=== PATIENT | female | born 1965 | race Caucasian/White ===

== ENCOUNTER 2016-06-29 10:43 | Emergency (ER) | payer OTHER ==
[~2016-06-29] VITALS: Ht 162.6 cm; Wt 70.3 kg
[2016-06-29] MEDS ORDERED: PARO40TA2 PO (10:54)
[2016-06-29] MEDS ORDERED: VITA50003 PO (10:54)
[2016-06-29] MEDS ORDERED: BUSP10TA PO (10:54)
[2016-06-29] MEDS ORDERED: CYCL10TA PO (10:54)
[2016-06-29] MEDS ORDERED: ZALE10CA PO (10:54)
[2016-06-29] MEDS ORDERED: GABA-279 PO (10:54)
[2016-06-29] MEDS ORDERED: CLON0.5T PO (10:54)
[2016-06-29] MEDS ORDERED: NORCO, ANEXSIA 5/325MG TABLET (HYDROcodone/ACETAMINOPHEN) PO ONE (12:00)
--- NOTE | 2016-06-29 12:31 | REP ---
Left wrist four views left wrist : There is no fracture or dislocation. Mineralization and joint spaces are normal. There are no calcifications or foreign bodies. Impression: Negative left wrist . Signed by Magdi Morillo MD 06/29/2016 12:22 P
--- NOTE | 2016-06-29 12:32 | REP ---
PA and lateral chest: Comparisons 05/08/2013. There is no pneumothorax, hemothorax or pulmonary contusion. No fractures are identified. The lung sheppard are clear. The cardiac size is normal The aj, mediastinum, and bony thorax are unremarkable. Impression: Negative PA and lateral chest. Signed by Magdi Morillo MD 06/29/2016 12:23 P
[2016-06-29 12:49] VITALS: BP 131/86
[2016-06-29] MEDS ORDERED: NAPR500T PO (12:52)
== END 2016-06-29 12:59 | disposition home or self-care (01) ==
LOC: M ED 12:15
DX: S30.0XXA Contusion of lower back and pelvis, initial encounter (principal); S60.212A Contusion of left wrist, initial encounter; W01.0XXA Fall on same level from slipping, tripping and stumbling without subsequent striking against object, initial encounter; Y92.019 Unspecified place in single-family (private) house as the place of occurrence of the external cause; Y93.01 Activity, walking, marching and hiking; Y99.8 Other external cause status; F17.210 Nicotine dependence, cigarettes, uncomplicated; Z79.899 Other long term (current) drug therapy; M54.9 Dorsalgia, unspecified; M19.90 Unspecified osteoarthritis, unspecified site; F31.9 Bipolar disorder, unspecified

== ENCOUNTER 2016-06-30 13:54 | Emergency (ER) | payer OTHER ==
[~2016-06-30] VITALS: Ht 165.1 cm; Wt 68.0 kg
[~2016-06-30 13:54] MED LIST: BUSP10TA PO; CLON0.5T PO; CYCL10TA PO; GABA-279 PO; NAPR500T PO; PARO40TA2 PO; VITA50003 PO; ZALE10CA PO
--- NOTE | 2016-06-30 17:24 | REP ---
CT THORACIC SPINE WITHOUT CONTRAST: 06/30/2016. Comparison chest x-ray 06/29/2016. Clinical history: Trauma. Patient fell yesterday with negative thoracic spine on chest x-ray. Axial images from C7-L1 were reviewed with the soft tissue and bone window settings and both coronal and sagittal reconstructions are provided. The disc spaces from C7-T1 through T12-L1 were preserved. There are small marginal osteophytes at multiple levels in the mid and lower thoracic spine. No compression deformity or destructive lesion. No Schmorl's nodes or endplate deformities. The axial images show no definite central canal or foraminal stenosis. Posterior rib articulations from the T1 through T12 ribs were symmetric and without abnormality. The pedicles, spinous processes, lamina, facets and transverse processes are all normal. No paraspinal hematoma or mass. Visualized chest shows no pleural effusion or pleural based mass. No paraspinal hematoma. The aorta from the arch through the upper abdominal region showed a few scattered calcifications without aneurysm. Impression: 1. No CT evidence of compression deformity, malalignment, disc space narrowing or destructive lesions within the thoracic spine. 2. Posterior elements intact and the posterior ribs articulate normally. Negative exam. Signed by Cj Shaver MD 07/01/2016 03:05 P
[2016-06-30 17:47] VITALS: BP 121/81
== END 2016-06-30 17:48 | disposition home or self-care (01) ==
LOC: M ED 16:40
DX: M54.89 Other dorsalgia (principal); W01.0XXD Fall on same level from slipping, tripping and stumbling without subsequent striking against object, subsequent encounter; Y92.9 Unspecified place or not applicable; Y93.9 Activity, unspecified; Y99.9 Unspecified external cause status; F17.200 Nicotine dependence, unspecified, uncomplicated; Z79.899 Other long term (current) drug therapy